=== PATIENT | female | born 1975 | race Caucasian/White ===

== ENCOUNTER 2018-08-12 14:45 | Emergency (ER) | payer SELFPAY ==
[~2018-08-12] VITALS: Ht 167.6 cm; Wt 120.5 kg
[~2018-08-12 14:45] MED LIST: AMOXICILLIN/CL875 MG PO; AMOXICILLIN500 MG OR; AMOXICILLIN500 MG PO; AMOXIL500 MG OR; ANTIVERT25 MG PO; AUGMENTIN875TAB PO; BACTRIM DS1 TAB PO; CEPHALEXIN500 MG OR; CIPRO500 MG OR; CLARITIN10 MG OR; COLCHICINE PO; COLD OR; FLEXERIL PO; KEFLEX500 MG PO; LORTAB 10-325 M1 TAB PO; LORTAB5 OR; METFORMIN500 M1 PO; MOTRIN800 MG PO; NAPROSYN500 MG OR; NAPROSYN500 MG PO; NO HOME MEDS; NO MEDS; ONDANSETRON4 MG PO; PAXIL30 MG PO; PREDNISONE20 MG OR; PREVACID30 M2 PO; ROBITUSSIN200 MG/10 PO; SUDAFED30 MG OR; TAM75CAP PO; THERAFL OR; TRAZODONE50 MG PO; TRIMOX500 MG PO; ULTRAM50 M1 PO; ULTRAM50 MG OR; VICOPROFEN PO; ZOFRAN ODT4 MG PO
[2018-08-12 15:28] LABS: URINE BILIRUBIN - DIPSTICK NEGATIVE (NEGATIVE); URINE BLOOD DIPSTICK LARGE (NEGATIVE); URINE COLOR YELLOW; URINE GLUCOSE - DIPSTICK NEGATIVE (NEGATIVE); URINE KETONE NEGATIVE (NEGATIVE); URINE LEUK ESTERASE NEGATIVE (NEGATIVE); URINE NITRITE - DIPSTICK NEGATIVE (Negative); URINE PROTEIN - DIPSTICK NEGATIVE (NEG-TRACE); URINE SPECIFIC GRAVITY >=1.030; URINE UROBILINOGEN - DIPSTICK 0.2 E.U./dL (0.2)
[2018-08-12 15:37] LABS: URINE CLARITY CLEAR
[2018-08-12 15:39] LABS: HEMOGLOBIN 12.8 g/dl (12.0-16.0); IMMATURE GRANULOCYTES 0.3 % (0.0-5.0); MEAN CELL VOLUME 88.6 fL CALC (80.0-100.0); MEAN CORPUSCULAR HGB 27.5 pG CALC (26.0-32.0); MEAN CORPUSCULAR HGB CONC 31.1 g/L CALC (32.0-36.0); NEUT# 4.42 thou/uL (2.00-7.15); RED BLOOD COUNT 4.65 mill/uL (4.20-5.60); RED CELL DISTRI WIDTH 14.1 % (11.5-15.5)
[2018-08-12 15:40] LABS: URINE RBC TNTC RBC/hpf (0-5)
[2018-08-12 15:41] LABS: URINE SQUAMOUS EPITHELIAL CELL FEW EPI/hpf (0-FEW)
[2018-08-12 15:45] LABS: HEMATOCRIT 41.2 % (37.0-47.0)
[2018-08-12 16:01] LABS: ALKALINE PHOSPHATASE 55 u/l (38-126); ANION GAP 13 (6-22 (CALC)); BILIRUBIN, TOTAL 0.3 mg/dL (0.0-1.4); BUN 18 mg/dL (7-17); BUN/CREATININE RATIO 25 (12-20 (CALC)); CARBON DIOXIDE 26 mmol/l (22-30); CHLORIDE 108 mmol/l (95-108); CREATININE 0.7 mg/dL (0.5-1.0); GFR > 60 ML/MIN (>=60 (CALC)); GFR FOR AFR.AMER. > 60 ML/MIN (>=60 (CALC)); POTASSIUM 4.1 mmol/l (3.5-5.1); SGOT/AST 24 u/l (14-36); SODIUM 143 mmol/l (137-146); TOTAL PROTEIN 7.6 g/dL (6.3-8.2)
[2018-08-12 16:22] VITALS: BP 117/66
== END 2018-08-12 16:29 | disposition home or self-care (01) | DRG 761 ==
LOC: ED 14:45
PROVIDERS: Emergency Medicine
DX: N93.8 Other specified abnormal uterine and vaginal bleeding (principal)

== ENCOUNTER 2019-02-26 14:46 | Emergency (ER) | payer SELFPAY ==
[~2019-02-26] VITALS: Ht 167.6 cm; Wt 125.0 kg
[2019-02-26] MEDS ORDERED: AMOXICILLIN500 M2 PO (16:14)
[2019-02-26 16:19] VITALS: BP 140/77
== END 2019-02-26 16:20 | disposition home or self-care (01) | DRG 153 ==
LOC: ED 14:46
DX: J02.0 Streptococcal pharyngitis (principal)

== ENCOUNTER 2019-06-29 10:27 | Emergency (ER) | payer SELFPAY ==
[~2019-06-29] VITALS: Ht 167.6 cm; Wt 136.0 kg
[~2019-06-29 10:27] MED LIST changes: +AMOXICILLIN500 M2 PO
[2019-06-29 10:50] VITALS: BP 148/78
[2019-06-29] MEDS ORDERED: AMOXICILLIN500 MG PO (10:56)
== END 2019-06-29 11:03 | disposition home or self-care (01) | DRG 159 ==
LOC: ED 10:27
DX: S01.511A Laceration without foreign body of lip, initial encounter (principal); W01.0XXA Fall on same level from slipping, tripping and stumbling without subsequent striking against object, initial encounter; Y92.007 Garden or yard of unspecified non-institutional (private) residence as the place of occurrence of the external cause

== ENCOUNTER 2019-07-11 07:59 | Emergency (ER) | payer SELFPAY ==
[~2019-07-11] VITALS: Ht 167.6 cm; Wt 127.0 kg
[2019-07-11] MEDS ORDERED: COLCHICINE0.6 M2 PO (09:08)
[2019-07-11] MEDS ORDERED: CEPHALEXIN500 M1 PO (09:08)
[2019-07-11 09:40] VITALS: BP 126/67
== END 2019-07-11 10:02 | disposition home or self-care (01) | DRG 556 ==
LOC: ED 07:59
DX: M25.572 Pain in left ankle and joints of left foot (principal); M10.9 Gout, unspecified; M77.32 Calcaneal spur, left foot

== ENCOUNTER 2019-07-25 09:30 | Emergency (ER) | payer SELFPAY ==
[~2019-07-25] VITALS: Ht 167.6 cm; Wt 127.3 kg
[~2019-07-25 09:30] MED LIST changes: +CEPHALEXIN500 M1 PO; +COLCHICINE0.6 M2 PO
[2019-07-25] MEDS ORDERED: AMOXICILLIN500 M2 PO (10:59)
[2019-07-25 11:10] VITALS: BP 129/74
== END 2019-07-25 11:10 | disposition home or self-care (01) | DRG 153 ==
LOC: ED 09:30
DX: J06.9 Acute upper respiratory infection, unspecified (principal); J02.9 Acute pharyngitis, unspecified; M25.572 Pain in left ankle and joints of left foot

== ENCOUNTER 2024-06-03 08:35 | Emergency (ER) | payer OTHER ==
[~2024-06-03] VITALS: Ht 167.6 cm; Wt 115.9 kg
[2024-06-03] VITALS (8 sets, daily range): BP systolic 119–149; BP diastolic 65–93
[~2024-06-03 08:35] MED LIST changes: +AMOX/K CLAV875 M1 PO; +FLEXERIL5 M1 PO; +NAPROXEN500 MG PO
[2024-06-03] MEDS ORDERED: METHOCARBAMOL 500 MG/TAB PO ONE (08:55)
[2024-06-03] MEDS ORDERED: KETOROLAC TROMETHAMINE 30 MG/ML SDV IM ONE (08:55)
[2024-06-03] MEDS ORDERED: CYCLOBENZAPRINE10 MG PO (10:33)
[2024-06-03] MEDS ORDERED: MOTRIN400 MG/TAB PO (10:33)
[2024-06-03] MEDS ORDERED: PREDNISONE50 MG PO (10:33)
== END 2024-06-03 10:45 | disposition home or self-care (01) | DRG 556 ==
LOC: ED 08:35
DX: M25.551 Pain in right hip (principal); M10.9 Gout, unspecified; E66.01 Morbid (severe) obesity due to excess calories

== ENCOUNTER 2024-09-12 13:01 | Emergency (ER) | payer OTHER ==
[2024-09-12] VITALS (12 sets, daily range): BP systolic 106–169; BP diastolic 35–109
[~2024-09-12] VITALS: Ht 167.6 cm; Wt 113.0 kg
[~2024-09-12 13:01] MED LIST changes: +CYCLOBENZAPRINE10 MG PO; +MOTRIN400 MG/TAB PO; +PREDNISONE50 MG PO
[2024-09-12] MEDS ORDERED: KETOROLAC TROMETHAMINE 30 MG/ML SDV IM ONE (14:25)
[2024-09-12] MEDS ORDERED: predniSONE 20 MG/TAB PO ONE (14:30)
[2024-09-12] MEDS ORDERED: ORPHENADRINE CITRATE 30 MG/ML AMP IM ONE (14:30)
[2024-09-12] MEDS ORDERED: PREDNISONE10 MG PO (16:33)
[2024-09-12] MEDS ORDERED: NAPROXEN500 MG PO (16:33)
[2024-09-12] MEDS ORDERED: METHOCARBAMOL500 MG PO (16:33)
== END 2024-09-12 16:55 | disposition home or self-care (01) | DRG 74 ==
LOC: ED 13:01
DX: M54.12 Radiculopathy, cervical region (principal)
CPT/HCPCS: J2360

== ENCOUNTER 2024-11-26 04:36 | Emergency (ER) | payer SELFPAY ==
[~2024-11-26] VITALS: Ht 167.6 cm; Wt 124.0 kg
[~2024-11-26 04:36] MED LIST changes: +METHOCARBAMOL500 MG PO; +PREDNISONE10 MG PO
[2024-11-26] MEDS ORDERED: PENICILLIN G BENZATHINE 1.2 MU/2 ML SYR IM ONE (05:05)
[2024-11-26] MEDS ORDERED: IBUPROFEN 100 MG/5 ML PO ONE (05:05)
[2024-11-26 05:22] VITALS: BP 137/84
[2024-11-27] MEDS ORDERED: DEXAMETHASON6 MG PO (13:22)
== END 2024-11-26 05:28 | disposition home or self-care (01) | DRG 153 ==
LOC: ED 04:36
DX: J03.90 Acute tonsillitis, unspecified (principal)
CPT/HCPCS: J0561

== ENCOUNTER 2024-11-27 10:29 | Emergency (ER) | payer SELFPAY ==
[2024-11-27] VITALS (11 sets, daily range): BP systolic 111–153; BP diastolic 58–93
[~2024-11-27] VITALS: Ht 167.6 cm; Wt 127.0 kg
[2024-11-27] MEDS ORDERED: KETOROLAC TROMETHAMINE 30 MG/ML SDV IV ONE (10:40)
[2024-11-27] MEDS ORDERED: SODIUM CHLORIDE 0.9% 1,000 ML IV ONE (10:40)
[2024-11-27] MEDS ORDERED: cefTRIAXone SODIUM 2 GM in SODIUM CHLORIDE 0.9% 100 ML IV ONE (10:40)
[2024-11-27 11:29] LABS: BASO% 0.3 % (0-3); EOS% 0.5 % (0-8); HEMATOCRIT 40.7 % (37.0-47.0); HEMOGLOBIN 12.7 g/dl (12.0-16.0); IMMATURE GRANULOCYTES 0.2 % (0.0-5.0); LYMPH% 13.9 % (15-41); MEAN CELL VOLUME 92.5 fL CALC (80.0-100.0); MEAN CORPUSCULAR HGB 28.9 pG CALC (26.0-32.0); MEAN CORPUSCULAR HGB CONC 31.2 g/dL CAL (32.0-36.0); MONO% 7.6 % (2-13); NEUT# 10.25 thou/uL (2.00-7.15); NEUT% 77.5 % (42-76); RED BLOOD COUNT 4.4 mill/uL (4.20-5.60); RED CELL DISTRI WIDTH 13.9 % (11.5-15.5)
[2024-11-27 11:36] LABS: CREATININE 0.9 mg/dL (0.5-1.0); POTASSIUM 4.2 mmol/l (3.5-5.1); TOTAL PROTEIN 7.7 g/dL (6.3-8.2)
[2024-11-27 11:37] LABS: BILIRUBIN, TOTAL 0.8 mg/dL (0.02-1.3)
[2024-11-27] MEDS ORDERED: DEXAMETHASON6 MG PO (13:22)
== END 2024-11-27 13:47 | disposition home or self-care (01) | DRG 866 ==
LOC: ED 10:29
PROVIDERS: Family Medicine
DX: B27.90 Infectious mononucleosis, unspecified without complication (principal); J03.80 Acute tonsillitis due to other specified organisms; E66.01 Morbid (severe) obesity due to excess calories; Z20.822 Contact with and (suspected) exposure to COVID-19
CPT/HCPCS: J0696; J1100; Q9967

== ENCOUNTER 2024-11-28 07:28 | Emergency (ER) | payer SELFPAY ==
[~2024-11-28] VITALS: Ht 167.6 cm; Wt 125.0 kg
[~2024-11-28 07:28] MED LIST changes: +DEXAMETHASON6 MG PO
[2024-11-28] MEDS ORDERED: KETOROLAC TROMETHAMINE 30 MG/ML SDV IM ONE (07:55)
[2024-11-28 08:11] VITALS: BP 126/66
== END 2024-11-28 08:16 | disposition home or self-care (01) | DRG 866 ==
LOC: ED 07:28
DX: B27.90 Infectious mononucleosis, unspecified without complication (principal); J03.90 Acute tonsillitis, unspecified; E66.01 Morbid (severe) obesity due to excess calories